=== PATIENT | female | born 2000 | race Two or more races ===

== ENCOUNTER → 2025-03-15 | Emergency (ER) | payer OTHER ==
[~2025-03-15] VITALS: Ht 172.7 cm; Wt 59.0 kg
[~2025-03-15] MED LIST: DIPHTH,PERTUSS(ACELL),TET VAC 0.5 ML SYRINGE IM ONE; TETANUS & DIPHTHERIA TOX,ADULT 0.5 ML VIAL IM ONE; TRAMADOL HCL 50 MG TABLET PO STA
== END | disposition designated cancer center or children's hospital (05) ==
LOC: ER 01:45
DX: S71.142A Puncture wound with foreign body, left thigh, initial encounter (principal); W45.8XXA Other foreign body or object entering through skin, initial encounter; Y93.89 Activity, other specified; Y92.013 Bedroom of single-family (private) house as the place of occurrence of the external cause
CPT/HCPCS: 90471; 90714; J1670